=== PATIENT | male | born 2000 ===

== ENCOUNTER 2021-11-29 03:38 | Emergency (ER) | payer SELFPAY ==
--- NOTE | 2021-11-29 10:26 | XRay Report ---
CHEST 2 VIEWS INDICATION / CLINICAL INFORMATION: CHEST PAIN. COMPARISON: None available. FINDINGS: SUPPORT DEVICES: None. HEART / MEDIASTINUM: No significant abnormality. LUNGS / PLEURA: No significant pulmonary or pleural abnormality. No pneumothorax. ADDITIONAL FINDINGS: No significant additional findings. IMPRESSION: 1. No acute findings. Signer Name: Stuart Anand MD Signed: 11/29/2021 10:21 AM Workstation Name: [id number]
[2021-11-29 10:44] LABS: Hematocrit 54.2 % (35.5-45.6); Hemoglobin 17.8 gm/dl (11.8-15.2); Mean Corpuscular HGB Conc 33 % (32-34); Mean Corpuscular Volume 94 fl (84-94); Platelet Count 174 K/mm3 (140-440); Red Blood Count 5.78 M/mm3 (3.65-5.03); Red Cell Distribution Width 13.5 % (13.2-15.2)
[2021-11-29 10:53] LABS: Alanine Aminotransferase 120 units/L (7-56); Albumin 4.2 g/dL (3.9-5); BUN/Creatinine Ratio 16; Blood Urea Nitrogen 14 mg/dL (9-20); Calcium 9.2 mg/dL (8.4-10.2); Hemolysis Index 11
[2021-11-29] MEDS ORDERED: SODIUM CHLORIDE 0.9% 1000 ML 1,000 ML IV ONE (11:17)
[2021-11-29] MEDS ORDERED: ONDANSETRON 4 MG/2 ML INJ IV ONE (11:17)
[2021-11-29] MEDS ORDERED: KETOROLAC 30 MG/1 ML INJ IV ONE (11:17)
[2021-11-29 12:30] LABS: Bilirubin,Urine Negative (Negative); Blood,Urine TRACE (Negative); Color,Urine Yellow (Yellow); Protein,Urine >500 mg/dL (Negative)
[2021-11-29 12:31] LABS: Urobilinogen,Urine < 2.0 mg/dL (<2.0)
[2021-11-29 12:42] LABS: Hyaline Casts,Urine 53 /LPF; Mucus,Urine 3+ /HPF
--- NOTE | 2021-11-29 15:43 | Cat Scan Report ---
CT ABDOMEN AND PELVIS WITH CONTRAST HISTORY: ABD PAIN COMPARISON: None. TECHNIQUE: Axial CT images were obtained through the abdomen and pelvis after 100 cc of Omnipaque 300 IV contrast. Sagittal and coronal reformatted images. All CT scans at this location are performed us ing CT dose reduction for ALARA by means of automated exposure control. FINDINGS: CT ABDOMEN: Lung Bases: Clear. Liver: No significant abnormality. Biliary: No significant abnormality. Spleen: No significant abnormality. Unenlarged. Pancreas: No significant abnormality. Adrenals: No significant abnormality. Kidneys: No significant abnormality. Lymphatics: No lymphadenopathy. Vasculature: No significant abnormality. Bowel/Peritoneum: No significant abnormality. No free air. No free fluid. CT PELVIS: : No significant abnormality. Osseous Structures: No significant abnormality. Additional Findings: None IMPRESSION: No significant abnormality identified. Signer Name: Hank Ford Jr, MD Signed: 11/29/2021 3:38 PM Workstation Name: [id number]
--- NOTE | 2021-11-29 15:53 | Emergency Department Report ---
ED General Adult HPI - General Chief complaint: Weakness Stated complaint: STREP THROAT,WEAKNESS Time Seen by Provider: 11/29/21 07:58 Source: EMS Mode of arrival: Stretcher Limitations: No Limitations - History of Present Illness Severity scale (0 -10): 2 - Related Data Allergies Allergy/AdvReac Type Severity Reaction Status Date / Time No Known Allergies Allergy Unverified 11/29/21 03:49 ED Review of Systems ROS: Stated complaint: STREP THROAT,WEAKNESS Other details as noted in HPI Comment: All other systems reviewed and negative ED Past Medical Hx - Past Medical History Previous Medical History?: No - Surgical History Past Surgical History?: No - Family History Family history: no significant - Social History Smoking Status: Unknown if ever smoked Substance Use Type: Alcohol ED Physical Exam - General Limitations: No Limitations General appearance: alert, in no apparent distress - Head Head exam: Present: atraumatic, normocephalic - Eye Eye exam: Present: normal appearance - ENT ENT exam: Present: mucous membranes moist - Neck Neck exam: Present: normal inspection - Respiratory Respiratory exam: Present: normal lung sounds bilaterally. Absent: respiratory distress - Cardiovascular Cardiovascular Exam: Present: regular rate, normal rhythm. Absent: systolic murmur, diastolic murmur, rubs, gallop - GI/Abdominal GI/Abdominal exam: Present: soft, normal bowel sounds - Rectal Rectal exam: Present: deferred - Extremities Exam Extremities exam: Present: normal inspection - Back Exam Back exam: Present: normal inspection - Neurological Exam Neurological exam: Present: alert, oriented X3 - Psychiatric Psychiatric exam: Present: normal affect, normal mood - Skin Skin exam: Present: warm, dry, intact, normal color. Absent: rash ED Course Vital Signs 11/29/21 11/29/21 03:45 10:47 Temperature 98.2 F Pulse Rate 110 H 87 Respiratory 18 17 Rate Blood Pressure 143/83 Blood Pressure 113/65 [Left] O2 Sat by Pulse 98 99 Oximetry ED Medical Decision Making - Lab Data Result diagrams: 11/29/21 09:45 11/29/21 09:45 - Radiology Data Radiology results: report reviewed, image reviewed - Medical Decision Making Labs 11/29/21 11/29/21 11/29/21 09:45 09:45 09:45 WBC 3.2 L RBC 5.78 H Hgb 17.8 H Hct 54.2 H MCV 94 MCH 31 MCHC 33 RDW 13.5 Plt Count 174 Sodium 131 L Potassium 4.8 Chloride 96.5 L Carbon Dioxide 21 L Anion Gap 18 BUN 14 Creatinine 0.9 Estimated GFR > 60 BUN/Creatinine Ratio 16 Glucose 85 Calcium 9.2 Total Bilirubin 0.30 AST 121 H ALT 120 H Alkaline Phosphatase 101 Total Protein 9.3 H Albumin 4.2 Albumin/Globulin Ratio 0.8 Lipase 27 Urine Color Urine Turbidity Urine pH Ur Specific [place] Urine Protein Urine Glucose (UA) Urine Ketones Urine Blood Urine Nitrite Urine Bilirubin Urine Urobilinogen Ur Leukocyte Esterase Urine WBC (Auto) Urine RBC (Auto) U Epithel Cells (Auto) Hyaline Casts Urine Mucus 11/29/21 09:58 WBC RBC Hgb Hct MCV MCH MCHC RDW Plt Count Sodium Potassium Chloride Carbon Dioxide Anion Gap BUN Creatinine Estimated GFR BUN/Creatinine Ratio Glucose Calcium Total Bilirubin AST ALT Alkaline Phosphatase Total Protein Albumin Albumin/Globulin Ratio Lipase Urine Color Yellow Urine Turbidity Clear Urine pH 6.0 Ur Specific [place] 1.030 Urine Protein >500 Urine Glucose (UA) Negative Urine Ketones 40 Urine Blood Trace Urine Nitrite Negative Urine Bilirubin Negative Urine Urobilinogen < 2.0 Ur Leukocyte Esterase Negative Urine WBC (Auto) 7.0 H Urine RBC (Auto) 2.0 U Epithel Cells (Auto) 3.0 Hyaline Casts 53 Urine Mucus 3+ Vital Signs 11/29/21 11/29/21 03:45 10:47 Temperature 98.2 F Pulse Rate 110 H 87 Respiratory 18 17 Rate Blood Pressure 143/83 Blood Pressure 113/65 [Left] O2 Sat by Pulse 98 99 Oximetry Critical care attestation.: If time is entered above; I have spent that time in minutes in the direct care of this critically ill patient, excluding procedure time. ED Disposition Clinical Impression: Transaminitis Disposition: HOME / SELF CARE / HOMELESS Is pt being admited?: No Does the pt Need Aspirin: No Condition: Stable Additional Instructions: AVOID TYLENOL SEE PCP NEXT WEEK FOR REPEAT LABS TAKE THIS PAPERWORK WITH YOU THE PCP CAN SEE LABS IN COMPUTER AVOID DRUGS/ALCOHOL STAY WELL HYDRATED WITH WATER DIET AND ACTIVITY TOLERATED Referrals: TREVER QUINN MD [Staff Physician] - 3-5 Days Forms: Work/School Release Form(ED) Time of Disposition: 15:52
[2021-11-29 16:24] VITALS: BP 114/68
== END 2021-11-29 16:23 | disposition home or self-care (01) ==
LOC: ED 03:38
DX: R74.01 Elevation of levels of liver transaminase levels (principal); R53.1 Weakness; Z72.89 Other problems related to lifestyle; Z79.899 Other long term (current) drug therapy
CPT/HCPCS: 36415; 71046; 74177; 80053; 81001; 83690; 85027; 96361; 96374; 96375; 99285; J1885; J2405; J7030; Q9967